=== PATIENT | male | born 1965 | race American Indian/Alaskan Native ===

== ENCOUNTER 2020-01-16 18:31 | Emergency (ER) | payer SELFPAY ==
--- NOTE | 2020-01-16 20:25 | Emergency Department Report ---
Blank Doc - Documentation Documentation: 54-year-old male that presents with uncontrolled HTN. Denies any headache. This initial assessment/diagnostic orders/clinical plan/treatment(s) is/are subject to change based on patient's health status, clinical progression and re- assessment by fellow clinical providers in the ED. Further treatment and workup at subsequent clinical providers discretion. Patient/guardians urged not to elope from the ED as their condition may be serious if not clinically assessed and managed. Initial orders include: 1- Patient sent to [facility] for further evaluation and treatment 2- labs 3- EKG R/O HTN emergency
[2020-01-16 21:05] LABS: Basophils # (Auto) 0.1 K/mm3 (0.0-0.1); Basophils % (Auto) 0.6 % (0.0-1.8); Eosinophils # (Auto) 0.3 K/mm3 (0.0-0.4); Eosinophils % (Auto) 3.4 % (0.0-4.3); Hemoglobin 12.8 gm/dl (11.8-15.2); Lymphocytes # (Auto) 1.9 K/mm3 (1.2-5.4); Lymphocytes % (Auto) 19.5 % (13.4-35.0); Mean Corpuscular HGB Conc 36 % (32-34); Mean Corpuscular Volume 86 fl (84-94); Platelet Count 251 K/mm3 (140-440); Red Cell Distribution Width 13.1 % (13.2-15.2)
[2020-01-16 21:22] LABS: BUN/Creatinine Ratio 10; Blood Urea Nitrogen 11 mg/dL (9-20); Hemolysis Index 11
[2020-01-16] MEDS ORDERED: hydrALAZINE 20 MG/1 ML INJ IV ONE (22:37)
[2020-01-16] MEDS ORDERED: cloNIDine 0.2 MG TAB PO ONE (23:10)
[2020-01-16] MEDS ORDERED: cloNIDine 0.2 MG TAB ONE (23:12)
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
[2020-01-17] MEDS ORDERED: ENALAPRILAT 2.5 MG/2 ML INJ IV ONE (01:00)
[2020-01-17 01:26] VITALS: BP 171/99
== END 2020-01-17 01:48 | disposition home or self-care (01) ==
LOC: ED 18:31
DX: I16.0 Hypertensive urgency (principal); I10 Essential (primary) hypertension; E11.9 Type 2 diabetes mellitus without complications; Z79.899 Other long term (current) drug therapy
CPT/HCPCS: 36415; 80048; 85025; 96374; 96376

== ENCOUNTER 2021-05-09 21:12 | Emergency (ER) | payer SELFPAY ==
[2021-05-09] MEDS ORDERED: amLODIPine 5 MG TAB PO ONE (23:15)
[2021-05-09] MEDS ORDERED: ACETAMINOPHEN 325 MG TAB PO ONE (23:15)
[2021-05-09] MEDS ORDERED: CLINDAMYCIN 300 MG CAP PO ONE (23:15)
--- NOTE | 2021-05-09 23:22 | Emergency Department Report ---
ED General Adult HPI - General Chief complaint: Skin/Abscess/Foreign Body Stated complaint: SWOLLEN FACE AND DIABETIC PUI?: No Time Seen by Provider: 05/09/21 23:03 Source: patient, RN notes reviewed, old records reviewed Mode of arrival: Ambulatory Limitations: No Limitations - History of Present Illness Initial comments: The patient is a 55-year-old gentleman. He is not known to myself previously. He has a history of hypertension, and has previously been prescribed lisinopril, Norvasc, HCTZ, diabetes, prescribed Metformin, out of medications for about 1 month. He also has a history of diabetic retinopathy, obesity, and poor dentition. He does not have an outpatient primary care doctor or outpatient dentist. The patient presents to the ER today with a primary complaint of nontraumatic left lateral facial pain, swelling and redness. Denies headache, neck pain, chest pain, abdominal pain, vomiting, loss of vision, weakness, numbness and ataxia. The left lateral jaw pain is nontraumatic, and because of skin swelling and pain, he has some difficulty with speech. However, he has no neck pain, or throat pain. He is also requesting refill on his lisinopril, 20 mg, HCTZ 25 mg, and Metformin, 500 mg, which he ran out of about a month ago. He has not taken pain medication [id number] that he is aware of. He brushes his teeth intermittently. He does not floss on a regular basis. No recent dental cleanings. -: Gradual, days(s) Location: face Quality: aching Consistency: intermittent Improves with: rest Worsens with: movement (Movement and palpation) - Related Data Previous Rx's Medication Instructions Recorded Last Taken Type Acetaminophen [Non-Aspirin Extra 500 mg PO Q6HR PRN #30 tablet 05/10/21 Unknown Rx Strength] Chlorhexidine Mouthwash [Peridex] 15 ml MM BID #1 bottle 05/10/21 Unknown Rx Clindamycin [Clindamycin CAP] 300 mg PO Q6H #28 capsule 05/10/21 Unknown Rx Ibuprofen [Motrin] 600 mg PO Q8H PRN #30 tablet 05/10/21 Unknown Rx hydroCHLOROthiazide [HCTZ] 25 mg PO QDAY #30 tablet 05/10/21 Unknown Rx lisinopriL [Lisinopril] 20 mg PO QDAY #30 tablet 05/10/21 Unknown Rx metFORMIN [Glucophage] 500 mg PO BID #60 tablet 05/10/21 Unknown Rx Allergies Allergy/AdvReac Type Severity Reaction Status Date / Time No Known Allergies Allergy Unverified 01/16/20 18:46 ED Review of Systems ROS: Stated complaint: SWOLLEN FACE AND DIABETIC Other details as noted in HPI Constitutional: denies: fever Eyes: denies: eye discharge, vision change ENT: denies: ear pain, throat pain, dental pain, epistaxis Respiratory: denies: cough Cardiovascular: denies: chest pain Gastrointestinal: denies: nausea, vomiting, diarrhea Genitourinary: denies: dysuria Skin: rash, lesions Neurological: denies: weakness, numbness, paresthesias, abnormal gait ED Past Medical Hx - Past Medical History Previous Medical History?: Yes Hx Hypertension: Yes Hx Diabetes: Yes - Surgical History Past Surgical History?: No - Social History Smoking Status: Never Smoker Substance Use Type: Alcohol - Medications Home Medications: Home Medications Medication Instructions Recorded Confirmed Last Taken Type Acetaminophen [Non-Aspirin Extra 500 mg PO Q6HR PRN #30 tablet 05/10/21 Unknown Rx Strength] Chlorhexidine Mouthwash [Peridex] 15 ml MM BID #1 bottle 05/10/21 Unknown Rx Clindamycin [Clindamycin CAP] 300 mg PO Q6H #28 capsule 05/10/21 Unknown Rx Ibuprofen [Motrin] 600 mg PO Q8H PRN #30 tablet 05/10/21 Unknown Rx hydroCHLOROthiazide [HCTZ] 25 mg PO QDAY #30 tablet 05/10/21 Unknown Rx lisinopriL [Lisinopril] 20 mg PO QDAY #30 tablet 05/10/21 Unknown Rx metFORMIN [Glucophage] 500 mg PO BID #60 tablet 05/10/21 Unknown Rx ED Physical Exam - General Limitations: No Limitations General appearance: alert, in no apparent distress, obese - Head Head exam: Present: atraumatic, normocephalic - Eye Eye exam: Present: normal appearance, PERRL, EOMI, other (Visual acuity intact to finger counting, color perception, reading at a close distance). Absent: nystagmus - ENT ENT exam: Present: normal orophraynx, mucous membranes moist, normal external ear exam, other (Patient has poor dentition. There is no stridor. The tongue is midline. There is no tenderness underneath the tongue, or the buccal mucosa) - Neck Neck exam: Present: normal inspection, full ROM. Absent: tenderness, meningismus - Respiratory Respiratory exam: Present: normal lung sounds bilaterally. Absent: respiratory distress, wheezes, rales, rhonchi, stridor, decreased breath sounds - Cardiovascular Cardiovascular Exam: Present: regular rate, normal rhythm, normal heart sounds. Absent: bradycardia, tachycardia, irregular rhythm, systolic murmur, diastolic murmur, rubs, gallop - GI/Abdominal GI/Abdominal exam: Present: soft. Absent: distended, tenderness, guarding, rebound, rigid, pulsatile mass - Rectal Rectal exam: Present: deferred - Extremities Exam Extremities exam: Present: normal inspection, full ROM, other (2+ pulses noted in the bilateral upper extremities. There is no long bony tenderness. Pelvis is stable. The muscular compartments are soft.). Absent: pedal edema, calf tenderness - Back Exam Back exam: Present: normal inspection. Absent: tenderness, CVA tenderness (R), CVA tenderness (L), paraspinal tenderness, vertebral tenderness - Neurological Exam Neurological exam: Present: alert, oriented X3, normal gait, other (There is no facial droop. The tongue is midline. Extraocular movements are intact bilaterally. There is 5 out of 5 strength in bilateral upper and lower extremities. Sensation is intact to light touch bilateral upper and lower extremities. There is no past-pointing. There is no pronator drift.). Absent: motor sensory deficit - Psychiatric Psychiatric exam: Present: normal affect, normal mood - Skin Skin exam: Present: warm, erythema, other (There is left lateral facial induration and tenderness. There is no fluctuance.) ED Course Vital Signs 05/09/21 05/09/21 21:17 23:39 Temperature 97.8 F Pulse Rate 89 98 H Respiratory 18 Rate Blood Pressure 210/89 O2 Sat by Pulse 99 Oximetry - Reevaluation(s) Reevaluation #1: 05/09/21 23:21 Differential diagnosis, including but not limited to: Cellulitis, hypertension, obesity, medication refill, poor dentition Assessment and plan: 55-year-old gentleman, who was afebrile, with reassuring vital signs with exception of chronic hypertension, not acutely decompensated, please reference the [employer] clinical policy on asymptomatic hypertension, who presents to the ER today with a primary complaint of left lateral facial induration, redness and tenderness, likely early facial cellulitis, no clinical evidence of abscess, patient reports penicillin allergy, will therefore treat with warm compresses, and clindamycin, with a secondary complaint of request for medication refill, lisinopril, HCTZ, and Metformin. Given that patient has not had outpatient follow-up, given that he is intermittently compliant, have recommended comprehensive metabolic panel to evaluate renal function and hepatic function, prior to prescribing these medications. I discussed this with the patient. He endorsed understanding. We will treat his symptoms, he has received Norvasc in the past from this facility, so we will reinitiate Norvasc. Reassess after laboratory studies have resulted ED Medical Decision Making - Lab Data Result diagrams: 05/09/21 23:41 Critical care attestation.: If time is entered above; I have spent that time in minutes in the direct care of this critically ill patient, excluding procedure time. ED Disposition Clinical Impression: Morbid obesity, Poor dentition, Facial cellulitis, Medication refill, Elevated blood pressure reading, Diabetes Disposition: 01 HOME / SELF CARE / HOMELESS Is pt being admited?: No Does the pt Need Aspirin: No Condition: Good Instructions: Diabetes Mellitus Type 2 in Adults (ED) Additional Instructions: [place] teeth twice daily. Floss on a daily basis. Follow-up with an outpatient dentist within the next month. Patient has received a 1 month refill on his outpatient medications. Please follow-up with any of the listed outpatient physicians for outpatient follow-up. Apply warm compresses as needed to the left facial swelling. Use the chlorhexidine mouthwash as directed. Recommend aggressive weight loss, diet and exercise as tolerated. It is important that the patient takes his medications, and follow-up with an outpatient physician, and participate in diet and lifestyle modification and aggressive weight loss. Long-term complications of hypertension and diabetes include stroke, heart attack, disability, paralysis, and loss of quality of life. Please return to the emergency room right away with new pain, worsened pain, migration of pain, projectile vomiting, change in mental status, confusion, inability to speak, inability to breathe, or any new, worsened or different symptoms not present on the initial emergency room evaluation. At this point in time, with warm compresses, and oral antibiotics, we do not anticipate need for incision and drainage of the left facial induration. However, it is possible that the patient may develop a small facial abscess that will subsequently require incision and drainage, therefore, it is important to follow-up with your outpatient physician for recheck and evaluation. Prescriptions: Clindamycin [Clindamycin CAP] 300 mg PO Q6H #28 capsule metFORMIN [Glucophage] 500 mg PO BID #60 tablet hydroCHLOROthiazide [HCTZ] 25 mg PO QDAY #30 tablet lisinopriL [Lisinopril] 20 mg PO QDAY #30 tablet Ibuprofen [Motrin] 600 mg PO Q8H PRN #30 tablet PRN Reason: Pain Acetaminophen [Non-Aspirin Extra Strength] 500 mg PO Q6HR PRN #30 tablet PRN Reason: Pain , Severe (7-10) Chlorhexidine Mouthwash [Peridex] 15 ml MM BID #1 bottle Referrals: [facility] [Outside] - 3-5 Days [facility] [Provider Group] - 3-5 Days [facility] [Outside] - 3-5 Days [facility] [Outside] - 3-5 Days Forms: Work/School Release Form(ED)
[2021-05-10 00:09] LABS: Alanine Aminotransferase 32 units/L (7-56); Albumin 4.3 g/dL (3.9-5); BUN/Creatinine Ratio 10; Blood Urea Nitrogen 10 mg/dL (9-20); Calcium 9.5 mg/dL (8.4-10.2); Hemolysis Index 18
[2021-05-10 01:24] VITALS: BP 198/91
== END 2021-05-10 01:25 | disposition home or self-care (01) ==
LOC: ED 21:12
DX: L03.211 Cellulitis of face (principal); K08.89 Other specified disorders of teeth and supporting structures; R03.0 Elevated blood-pressure reading, without diagnosis of hypertension; E11.9 Type 2 diabetes mellitus without complications; I10 Essential (primary) hypertension; E66.01 Morbid (severe) obesity due to excess calories; Z68.41 Body mass index [BMI] 40.0-44.9, adult; Z76.0 Encounter for issue of repeat prescription; Z72.89 Other problems related to lifestyle; Z79.899 Other long term (current) drug therapy
CPT/HCPCS: 36415; 80053; 99283

== ENCOUNTER 2021-12-03 10:26 | Emergency (ER) | payer SELFPAY ==
[2021-12-03 10:44] VITALS: BP 150/111
== END 2021-12-04 01:06 | disposition left against medical advice (07) ==
LOC: ED 10:26
DX: M54.9 Dorsalgia, unspecified (principal); Z53.21 Procedure and treatment not carried out due to patient leaving prior to being seen by health care provider